=== PATIENT | male | born 1945 | race Two or more races ===

== ENCOUNTER 2020-11-10 05:45 | Day surgery (SDC) | payer OTHER ==
[~2020-11-10 05:45] MED LIST: CENTRUM ADULTS1 EACH PO; D3 + K2 DOTS 11 EACH PO; ECOTRIN81 MG PO; GABAPENTIN400 MG PO; JANUVIA100 MG PO; LIPITOR40 M1 PO; METFORMIN HCL500 M2; ZESTRIL20 MG PO; ZOCOR40 MG PO
== END 2020-11-10 15:40 | disposition home or self-care (01) ==
LOC: CIR.AMB 05:45
PROVIDERS: ATTEND Surgery
DX: K40.30 Unilateral inguinal hernia, with obstruction, without gangrene, not specified as recurrent (principal); Z20.822 Contact with and (suspected) exposure to COVID-19